=== PATIENT | male | born 1950 | race Caucasian/White ===

== ENCOUNTER 2016-04-04 14:23 | Outpatient (CLI) | payer SELFPAY | END 2016-04-04 14:24 | disposition home or self-care (01) | DX: F17.210 Nicotine dependence, cigarettes, uncomplicated (principal); J43.9 Emphysema, unspecified; J84.10 Pulmonary fibrosis, unspecified ==

== ENCOUNTER 2016-06-22 11:40 | Emergency (ER) | payer MEDICARE, MEDICAID ==
[2016-06-22] MEDS ORDERED: SODIUM CHLORIDE 0.9% 1,000 ML IV ONE ×2 (12:12→14:08)
[2016-06-22] MEDS ORDERED: DEXAMETHASONE 10 MG/ML VIAL IVP STA (14:11)
[2016-06-22] MEDS ORDERED: TBO-FILGRASTIM 480 MCG/0.8 ML SYRINGE SUBQ ONE (14:12)
[2016-06-22] MEDS ORDERED: levoFLOXacin 250 MG TABLET PO STA (14:14)
[2016-06-22] MEDS ORDERED: DEXAMETHASONE 10 MG/ML VIAL ONE (14:24)
[2016-06-22] MEDS ORDERED: levoFLOXacin 250 MG TABLET PO ONE (14:24)
[2016-06-22] MEDS ORDERED: ONDANSETRON 4 MG/2 ML VIAL IVP STA (14:28)
[2016-06-22] MEDS ORDERED: ONDANSETRON 4 MG/2 ML VIAL ONE (14:34)
== END 2016-06-22 16:53 | disposition home or self-care (01) ==
DX: E86.0 Dehydration (principal); D70.1 Agranulocytosis secondary to cancer chemotherapy; C06.9 Malignant neoplasm of mouth, unspecified; C79.89 Secondary malignant neoplasm of other specified sites; I10 Essential (primary) hypertension; Z86.73 Personal history of transient ischemic attack (TIA), and cerebral infarction without residual deficits; Z87.891 Personal history of nicotine dependence

== ENCOUNTER 2016-06-24 14:48 | Observation (INO) | payer MEDICARE, MEDICAID ==
[2016-06-24] MEDS ORDERED: SODIUM CHLORIDE 0.9% 1,000 ML IV ONE ×4 (15:29→19:19)
[2016-06-24] MEDS ORDERED: ONDANSETRON 4 MG/2 ML VIAL IVP STA (15:29)
[2016-06-24] MEDS ORDERED: DEXAMETHASONE 10 MG/ML VIAL IVP STA (15:29)
[2016-06-24] MEDS ORDERED: PEGFILGRASTIM 6 MG/0.6 ML SYRINGE SUBQ ONE (15:31)
[2016-06-24] MEDS ORDERED: DEXAMETHASONE 10 MG/ML VIAL ONE (15:59)
[2016-06-24] MEDS ORDERED: ONDANSETRON 4 MG/2 ML VIAL ONE (15:59)
[2016-06-24] MEDS ORDERED: FAMOTIDINE 20 MG/50 ML 50 ML IV ONE ×2 (19:09→19:19)
[2016-06-24] MEDS ORDERED: ONDANSETRON ODT 4 MG TABLET TL PRN (20:37)
[2016-06-24] MEDS ORDERED: MORPHINE 2 MG/ML SYRINGE IVP PRN (20:37)
[2016-06-24] MEDS ORDERED: SODIUM CHLORIDE FLUSH 0.9% 10 ML SYRINGE IVP PRN (20:37)
[2016-06-24] MEDS ORDERED: ACETAMINOPHEN 1,000 MG/100 ML 100 ML IV SCH (20:37)
[2016-06-24] MEDS ORDERED: ONDANSETRON 4 MG/2 ML VIAL IVP PRN (20:37)
[2016-06-24] MEDS ORDERED: PROCHLORPERAZINE 10 MG/2 ML VIAL IVP PRN (20:37)
[2016-06-24] MEDS ORDERED: ACETAMINOPHEN 1,000 MG/100 ML 100 ML IV PRN (20:55)
[2016-06-24] MEDS ORDERED: DEXTROSE 5%-0.45% NACL 1,000 ML IV SCH (21:00)
[2016-06-24] MEDS ORDERED: SCOPOLAMINE PATCH TOP SCH (21:00)
[2016-06-24] MEDS: PANTOPRAZOLE 40 MG VIAL IVP SCH (21:36)
[2016-06-24] MEDS: SODIUM CHLORIDE FLUSH 0.9% 10 ML SYRINGE IVP SCH (21:37)
[2016-06-24] MEDS ORDERED: hydrALAZINE INJ 20 MG/ML VIAL IVP PRN (23:10)
[2016-06-25] MEDS: ENALAPRILAT 1.25 MG/ML VIAL IVP SCH ×2 (00:08→06:20)
[2016-06-25] MEDS: SODIUM CHLORIDE FLUSH 0.9% 10 ML SYRINGE IVP SCH (06:19)
[2016-06-25] MEDS: PANTOPRAZOLE 40 MG VIAL IVP SCH (06:20)
[2016-06-25] MEDS ORDERED: DEXTROSE 5% 500 ML IV SCH (06:30)
[2016-06-25] MEDS: DEXTROSE 5% 1,000 ML IV SCH ×2 (08:00→09:53)
[2016-06-25] MEDS ORDERED: POLYETHYLENE GLYCOL 3350 17 GM PACKET PO SCH (09:00)
== END 2016-06-25 12:00 | disposition home or self-care (01) ==
DX: R11.2 Nausea with vomiting, unspecified (principal); E86.0 Dehydration; N17.9 Acute kidney failure, unspecified; E44.0 Moderate protein-calorie malnutrition; E87.0 Hyperosmolality and hypernatremia; T45.1X5A Adverse effect of antineoplastic and immunosuppressive drugs, initial encounter; C01 Malignant neoplasm of base of tongue; C79.89 Secondary malignant neoplasm of other specified sites; J43.9 Emphysema, unspecified; R13.10 Dysphagia, unspecified; I10 Essential (primary) hypertension; E78.5 Hyperlipidemia, unspecified; Z68.22 Body mass index [BMI] 22.0-22.9, adult; F17.210 Nicotine dependence, cigarettes, uncomplicated; Z86.73 Personal history of transient ischemic attack (TIA), and cerebral infarction without residual deficits; Z79.899 Other long term (current) drug therapy; Z66 Do not resuscitate
CPT/HCPCS: 36415; 71010; 80048; 80053; 81001; 83690; 83735; 85025; 87150; 96361; 96365; 96372; 96375; 96376; 99284; 99285; G0378; J3490

== ENCOUNTER 2016-07-09 18:35 | Outpatient (CLI) | payer MEDICARE | END 2016-07-09 18:36 | disposition home or self-care (01) | DX: Z03.89 Encounter for observation for other suspected diseases and conditions ruled out (principal) ==

== ENCOUNTER 2016-07-11 10:47 | Outpatient (CLI) | payer MEDICARE, MEDICAID | END 2016-07-11 10:48 | disposition critical access hospital (66) | LOC: EMS 10:47 | PROVIDERS: ATTEND Surgery | DX: R53.1 Weakness (principal) | CPT/HCPCS: A0425; A0427 ==

== ENCOUNTER 2016-07-11 11:09 | Inpatient (IN) | payer MEDICARE, MEDICAID ==
[2016-07-11] MEDS ORDERED: SODIUM CHLORIDE 0.9% 1,000 ML IV ONE ×3 (12:06→14:01)
[2016-07-11] MEDS ORDERED: cefTRIAXone 1 GM in SODIUM CHLORIDE 0.9% MINIBAG 100 ML IV STA (14:01)
[2016-07-11] MEDS ORDERED: AZITHROMYCIN INJ 500 MG in SODIUM CHLORIDE 0.9% 250 ML IV STA (14:01)
[2016-07-11] MEDS ORDERED: cefTRIAXone 1 GM VIAL ONE (14:05)
[2016-07-11] MEDS ORDERED: ONDANSETRON ODT 4 MG TABLET TL PRN (14:41)
[2016-07-11] MEDS ORDERED: SODIUM CHLORIDE FLUSH 0.9% 10 ML SYRINGE IVP PRN (14:43)
[2016-07-11] MEDS ORDERED: ACETAMINOPHEN 325 MG TABLET PO PRN (14:43)
[2016-07-11] MEDS ORDERED: HYDROcod/ACETAM 5/325 MG TABLET PO PRN (14:43)
[2016-07-11] MEDS ORDERED: DEXTROSE IV SCH (17:00)
[2016-07-11] MEDS ORDERED: NACL IV SCH (17:00)
[2016-07-11] MEDS ORDERED: POTASSIUM CHLORIDE IV SCH (17:00)
[2016-07-11] MEDS: ALBUTEROL NEB 2.5 MG/3 ML INH SCH ×2 (17:40→19:35)
[2016-07-11] MEDS: TBO-FILGRASTIM 300 MCG/0.5 ML SYRINGE SUBQ SCH (18:31)
[2016-07-11] MEDS: SODIUM CHLORIDE FLUSH 0.9% 10 ML SYRINGE IVP SCH (21:23)
[2016-07-11] MEDS ORDERED: POTASSIUM PHOSPHATE 21 MMOL in SODIUM CHLORIDE 0.9% 250 ML IV SCH (22:00)
[2016-07-11] MEDS ORDERED: MAGNESIUM SULFATE 2 GRAM 50 ML IV SCH (22:00)
[2016-07-11] MEDS ORDERED: LORAZEPAM 1 MG PO PRN (22:05)
[2016-07-11] MEDS ORDERED: SODIUM CHLORIDE 0.9% 250 ML IV ONE (22:34)
[2016-07-11] MEDS ORDERED: LORazepam 0.5 MG TABLET PO PRN (22:35)
[2016-07-12] MEDS ORDERED: VANCOMYCIN PER PHARMACY 1 GM in SODIUM CHLORIDE 0.9% 250 ML IV SCH (02:00)
[2016-07-12] MEDS: IPRATROPIUM/ALBUTEROL 3 ML NEB INH SCH ×3 (02:10→13:00)
[2016-07-12] MEDS: methylPREDNISolone SUCCINATE 40 MG/ML VIAL IVP SCH ×4 (02:24→20:15)
[2016-07-12] MEDS: PIPERACILLIN/TAZOBACTAM 3.375 GM in SODIUM CHLORIDE 0.9% MINIBAG 100 ML IV SCH ×4 (02:31→20:15)
[2016-07-12] MEDS: VANCOMYCIN INJ 1 GM in SODIUM CHLORIDE 0.9% 250 ML IV SCH ×2 (04:08→16:06)
[2016-07-12] MEDS: SODIUM CHLORIDE FLUSH 0.9% 10 ML SYRINGE IVP SCH ×3 (05:55→20:15)
[2016-07-12] MEDS ORDERED: SODIUM CHLORIDE FLUSH 0.9% 10 ML SYRINGE IVP PRN (06:32)
[2016-07-12] MEDS ORDERED: ASPIRIN CHEW 81 MG TABLET PO SCH (09:00)
[2016-07-12] MEDS: FLUoxetine 10 MG CAPSULE PO SCH (09:09)
[2016-07-12] MEDS: ATENOLOL 25 MG TABLET PO SCH (09:10)
[2016-07-12] MEDS: NEUTRA-PHOS 250 MG TABLET GT SCH ×3 (09:10→16:10)
[2016-07-12] MEDS: AZITHROMYCIN INJ 500 MG in SODIUM CHLORIDE 0.9% 250 ML IV SCH (09:14)
[2016-07-12] MEDS: POLYETHYLENE GLYCOL 3350 17 GM PACKET PO SCH (09:15)
[2016-07-12] MEDS: TBO-FILGRASTIM 300 MCG/0.5 ML SYRINGE SUBQ SCH (09:15)
[2016-07-12] MEDS ORDERED: MIN OIL/DIMETHICON/COCONUT OIL 92 GM TUBE TOP PRN (19:53)
[2016-07-12] MEDS ORDERED: SODIUM CHLORIDE 0.9% 1,000 ML IV SCH ×2 (21:36→22:30)
[2016-07-12] MEDS ORDERED: POTASSIUM CHLOR 10 MEQ/100 ML 100 ML IV SCH (21:38)
[2016-07-12] MEDS: PANTOPRAZOLE 40 MG VIAL IVP SCH (23:36)
[2016-07-13] MEDS: IPRATROPIUM/ALBUTEROL 3 ML NEB INH SCH ×2 (00:17→00:49)
[2016-07-13] MEDS: PIPERACILLIN/TAZOBACTAM 3.375 GM in SODIUM CHLORIDE 0.9% MINIBAG 100 ML IV SCH ×2 (01:38→08:26)
[2016-07-13] MEDS ORDERED: LIDOCAINE 2% URO-JET 5 ML SYRINGE UR SCH (02:14)
[2016-07-13] MEDS: SODIUM CHLORIDE FLUSH 0.9% 10 ML SYRINGE IVP SCH (02:55)
[2016-07-13] MEDS: VANCOMYCIN INJ 1 GM in SODIUM CHLORIDE 0.9% 250 ML IV SCH (03:25)
[2016-07-13] MEDS: PANTOPRAZOLE 40 MG VIAL IVP SCH (08:26)
[2016-07-13] MEDS: FLUoxetine 10 MG CAPSULE PO SCH (08:27)
[2016-07-13] MEDS: NEUTRA-PHOS 250 MG TABLET GT SCH (08:27)
[2016-07-13] MEDS: POLYETHYLENE GLYCOL 3350 17 GM PACKET PO SCH (08:35)
[2016-07-13] MEDS: AZITHROMYCIN INJ 500 MG in SODIUM CHLORIDE 0.9% 250 ML IV SCH (08:35)
[2016-07-13] MEDS: POTASSIUM CHLOR 20 MEQ/100 ML 100 ML IV SCH ×2 (08:53→09:55)
[2016-07-13] MEDS: ATENOLOL 25 MG TABLET PO SCH (09:30)
[2016-07-13] MEDS: TBO-FILGRASTIM 300 MCG/0.5 ML SYRINGE SUBQ SCH (09:55)
== END 2016-07-13 11:25 | disposition expired | DRG 194 ==
PROC: 30233N1 Transfusion of Nonautologous Red Blood Cells into Peripheral Vein, Percutaneous Approach (ICD-10-PCS; principal; 2016-07-13)
DX: J18.1 Lobar pneumonia, unspecified organism (principal); K92.2 Gastrointestinal hemorrhage, unspecified; D62 Acute posthemorrhagic anemia; R57.0 Cardiogenic shock; R09.02 Hypoxemia; C01 Malignant neoplasm of base of tongue; Z86.73 Personal history of transient ischemic attack (TIA), and cerebral infarction without residual deficits; D70.1 Agranulocytosis secondary to cancer chemotherapy; T45.1X5A Adverse effect of antineoplastic and immunosuppressive drugs, initial encounter; E86.0 Dehydration; E87.6 Hypokalemia; E88.09 Other disorders of plasma-protein metabolism, not elsewhere classified; R13.10 Dysphagia, unspecified; I10 Essential (primary) hypertension; J44.9 Chronic obstructive pulmonary disease, unspecified; J84.10 Pulmonary fibrosis, unspecified; E78.5 Hyperlipidemia, unspecified; I69.30 Unspecified sequelae of cerebral infarction; Z66 Do not resuscitate; Z79.899 Other long term (current) drug therapy; Z93.1 Gastrostomy status; Z79.82 Long term (current) use of aspirin; Z87.891 Personal history of nicotine dependence; Z87.898 Personal history of other specified conditions; Z95.828 Presence of other vascular implants and grafts